=== PATIENT | female | born 1955 | race Hispanic/Latino ===

== ENCOUNTER 2020-11-30 11:16 | Inpatient (IN) | payer MEDICARE ==
[~2020-11-30] VITALS: Ht 154.9 cm; Wt 87.5 kg
[2020-11-30] MEDS ORDERED: ALBUTEROL INHALER 90MCG/INH IH ONE (11:54)
[2020-11-30] MEDS ORDERED: CEFTRIAXONE 1G VIAL ONE (11:55)
[2020-11-30] MEDS ORDERED: AZITHROMYCIN 250 MG TABLET PO ONE (11:55)
[2020-11-30] MEDS ORDERED: ACETAMINOPHEN WITH CODEINE 1 TAB TAB ONE (11:56)
[2020-11-30 12:09] LABS: ABG BASE EXCESS 0.6 mmol/L (-2.0-3.0); ABG HCO3 25.6 mmol/L (21.0-28.0); ABG OXYGEN SATURATION 95.4 % (95.0-99.0); ABG PCO2 42 mmHg (32-45)
[2020-11-30 12:23] LABS: BASOPHILS % (AUTO) 0.3 % (0.0-5.0); HEMATOCRIT 35.4 % (36-48); LYMPHOCYTES % (AUTO) 21.1 % (21.0-51.0); MEAN CORPUSCULAR HEMOGLOBIN 29.4 pg (27.0-33.0); MEAN CORPUSCULAR HGB CONC 34.5 g/dL (32.0-36.0); MEAN CORPUSCULAR VOLUME 85.3 fL (79-99); MONOCYTES % (AUTO) 8.1 % (3.0-13.0); NEUTROPHILS % (AUTO) 70.2 % (40.0-77.0); PLATELET COUNT (AUTO) 257 K/uL (130-400); RED BLOOD CELL COUNT(AUTO) 4.15 MIL/uL (4.00-5.50); RED CELL DISTRIBUTION WIDTH 12.4 % (11.0-15.5); WHITE BLOOD COUNT (AUTO) 6.5 K/uL (4.8-10.8)
[2020-11-30 12:28] LABS: POTASSIUM 4.2 mmol/L (3.5-5.1)
[2020-11-30 12:33] LABS: INR 1.02 (0.85-1.15); PROTHROMBIN TIME 11.1 SEC (9.6-11.6)
[2020-11-30 12:34] LABS: PARTIAL THROMBOPLASTIN TIME 26.7 SEC (26.3-35.5)
[2020-11-30 12:40] LABS: ALBUMIN 3.2 g/dL (3.5-5.0); BILIRUBIN,TOTAL 0.5 mg/dL (0.2-1.0); CREATININE 0.7 mg/dL (0.5-1.5); TOTAL PROTEIN, SERUM 7.1 g/dL (6.0-8.3)
[2020-11-30 12:54] LABS: B-TYPE NATRIURETIC PEPTIDE 14 pg/mL (0-100)
[2020-11-30] MEDS ORDERED: ALBUTEROL INHALER 90MCG/INH IH PRN (13:30)
[2020-11-30] MEDS ORDERED: ACETAMINOPHEN 325 MG TAB PO PRN ×2 (13:30)
[2020-11-30] MEDS ORDERED: LACTULOSE 20 GM/30 ML UDCUP PO PRN (13:30)
[2020-11-30] MEDS ORDERED: ERGOCALCIFEROL (VITAMIN D2) 50,000 UNIT CAPSULE PO ONE (13:30)
[2020-11-30] MEDS ORDERED: ONDANSETRON 4MG INJ IV PRN (13:30)
[2020-11-30] MEDS ORDERED: DEXAMETHASONE SOD PHOSPHATE 4 MG/ML 1ML VIAL IVP SCH (13:30)
[2020-11-30] MEDS ORDERED: IOHEXOL-350 75 ML VIAL IV ONE (13:45)
[2020-11-30] MEDS ORDERED: PHARMACY COMMUNICATION MISC SCH (14:00)
[2020-11-30] MEDS ORDERED: ERGOCALCIFEROL (VITAMIN D2) 50,000 UNIT CAPSULE ONE (14:03)
[2020-11-30] MEDS ORDERED: DEXAMETHASONE SOD PHOSPHATE 4 MG/ML 1ML VIAL ONE (14:03)
[2020-11-30 15:30] VITALS: BP 153/73
[2020-11-30] MEDS: INSULIN HUMULIN R 100 UNIT/ML 3ML SQ SCH ×2 (16:30→20:41)
[2020-11-30] MEDS: FAMOTIDINE 20MG TAB PO SCH (20:37)
[2020-11-30 20:50] VITALS: BP 131/64
[2020-11-30 23:54] VITALS: BP 127/65
[2020-12-01 04:43] VITALS: BP 123/65
[2020-12-01 04:53] LABS: BASOPHILS % (AUTO) 0.2 % (0.0-5.0); HEMATOCRIT 34.9 % (36-48); LYMPHOCYTES % (AUTO) 20.3 % (21.0-51.0); MEAN CORPUSCULAR HEMOGLOBIN 28.9 pg (27.0-33.0); MEAN CORPUSCULAR HGB CONC 33.8 g/dL (32.0-36.0); MEAN CORPUSCULAR VOLUME 85.3 fL (79-99); MONOCYTES % (AUTO) 7.1 % (3.0-13.0); NEUTROPHILS % (AUTO) 72.1 % (40.0-77.0); PLATELET COUNT (AUTO) 303 K/uL (130-400); RED BLOOD CELL COUNT(AUTO) 4.09 MIL/uL (4.00-5.50); RED CELL DISTRIBUTION WIDTH 12.3 % (11.0-15.5); WHITE BLOOD COUNT (AUTO) 6.5 K/uL (4.8-10.8)
[2020-12-01 05:10] LABS: ALBUMIN 3.2 g/dL (3.5-5.0); BILIRUBIN,TOTAL 0.3 mg/dL (0.2-1.0); CREATININE 0.7 mg/dL (0.5-1.5); CRP QUANTITATIVE 10.2 mg/L (0.00-9.0); TOTAL PROTEIN, SERUM 7.1 g/dL (6.0-8.3)
[2020-12-01 05:13] LABS: HEMOGLOBIN A1C 8.4 % (4.0-6.0)
[2020-12-01] MEDS: INSULIN HUMULIN R 100 UNIT/ML 3ML SQ SCH ×4 (06:47→20:28)
[2020-12-01 08:00] VITALS: BP 147/74
[2020-12-01] MEDS: FAMOTIDINE 20MG TAB PO SCH ×2 (08:58→20:24)
[2020-12-01] MEDS: ENOXAPARIN SODIUM 40 MG/0.4 ML SYRINGE SQ SCH (08:59)
[2020-12-01] MEDS ORDERED: ASCORBIC ACID 500 MG TAB PO SCH (09:00)
[2020-12-01] MEDS ORDERED: ZINC SULFATE 220 CAPSULE PO SCH (09:00)
[2020-12-01 11:00] VITALS: BP 119/59
[2020-12-01] MEDS ORDERED: DEXAMETHASONE 4 MG TAB PO SCH (11:00)
[2020-12-01 15:42] VITALS: BP 140/69
[2020-12-01 20:27] VITALS: BP 123/71
[2020-12-02 00:18] VITALS: BP 107/57
[2020-12-02 04:22] LABS: BASOPHILS % (AUTO) 0.2 % (0.0-5.0); HEMATOCRIT 33.2 % (36-48); LYMPHOCYTES % (AUTO) 18.8 % (21.0-51.0); MEAN CORPUSCULAR HEMOGLOBIN 29.8 pg (27.0-33.0); MEAN CORPUSCULAR HGB CONC 34.6 g/dL (32.0-36.0); MONOCYTES % (AUTO) 6.8 % (3.0-13.0); NEUTROPHILS % (AUTO) 73.8 % (40.0-77.0); PLATELET COUNT (AUTO) 304 K/uL (130-400); RED BLOOD CELL COUNT(AUTO) 3.86 MIL/uL (4.00-5.50); RED CELL DISTRIBUTION WIDTH 12.5 % (11.0-15.5); WHITE BLOOD COUNT (AUTO) 10.1 K/uL (4.8-10.8)
[2020-12-02 04:39] VITALS: BP 144/67
[2020-12-02 04:42] LABS: ALBUMIN 3.1 g/dL (3.5-5.0); BILIRUBIN,TOTAL 0.4 mg/dL (0.2-1.0); CREATININE 0.7 mg/dL (0.5-1.5); CRP QUANTITATIVE 7.4 mg/L (0.00-9.0); POTASSIUM 4.1 mmol/L (3.5-5.1)
[2020-12-02] MEDS: INSULIN HUMULIN R 100 UNIT/ML 3ML SQ SCH ×2 (06:43→11:58)
[2020-12-02 08:00] VITALS: BP 130/62
[2020-12-02] MEDS: ENOXAPARIN SODIUM 40 MG/0.4 ML SYRINGE SQ SCH (08:30)
[2020-12-02] MEDS: FAMOTIDINE 20MG TAB PO SCH (08:30)
[2020-12-02] MEDS ORDERED: GUAI120015 PO (09:53)
[2020-12-02] MEDS ORDERED: BENZ-39 PO (09:53)
[2020-12-02 12:00] VITALS: BP 144/57
== END 2020-12-02 13:49 | disposition home or self-care (01) | DRG 177 ==
LOC: EDH 11:16 → EDHIP 13:24 → 2DH 14:09
PROVIDERS: ADMIT Family Medicine; ATTEND Family Medicine
DX: U07.1 COVID-19 (principal); J12.82 Pneumonia due to coronavirus disease 2019; J96.01 Acute respiratory failure with hypoxia; I10 Essential (primary) hypertension; E11.9 Type 2 diabetes mellitus without complications; E89.0 Postprocedural hypothyroidism; Z85.850 Personal history of malignant neoplasm of thyroid
CPT/HCPCS: 36415; 36600; 71045; 71275; 80053; 82550; 82728; 82803; 82948; 83036; 83605; 83615; 83880; 84145; 84484; 85025; 85378; 85610; 85730; 86140; 87040; 87426; 87804; 87880; 93005; G0378; J0696; J1100; J1650; J8540; Q9967

== ENCOUNTER → 2025-02-14 | Outpatient (CLI) | payer OTHER ==
[~2025-02-14] MED LIST: BENZ-39 PO; GUAI120015 PO
== END | disposition home or self-care (01) ==
LOC: RAH 09:10
PROVIDERS: ATTEND Student in an Organized Health Care Education/Training Program
DX: Z12.31 Encounter for screening mammogram for malignant neoplasm of breast (principal)
CPT/HCPCS: 77067